=== PATIENT | male | born 1975 | race Two or more races ===

== ENCOUNTER 2016-05-14 22:28 | Emergency (ER) | payer BC ==
[2016-05-14 22:09] LABS: INFLUENZA A NEG (NEG); INFLUENZA B NEG (NEG)
== END 2016-05-14 22:38 | disposition home or self-care (01) ==
LOC: CFTX 22:28
PROVIDERS: Emergency Medicine
DX: J02.9 Acute pharyngitis, unspecified (principal)
CPT/HCPCS: 87651; 87804; 99283